=== PATIENT | male | born 1995 | race African-American/Black ===

== ENCOUNTER 2022-10-27 19:53 | Emergency (ER) | payer OTHER ==
[2022-10-27 20:09] VITALS: BP 121/81; PULSE 88; RESP 16; TEMP 98.4; BMI 22.1
[2022-10-27] MEDS ORDERED: AMOX TR/POT CLAV 875MG/125MG TABLETS (FP) PO ONE (20:17)
[2022-10-27] MEDS ORDERED: AMOX TR/POT CLAV 875MG/125MG TABLETS (FP) ONE (20:18)
[2022-10-27] MEDS ORDERED: DIPHTH,PERTUSS(ACELL),TET 0.5 ML DISP.SYRIN IM ONE ×2 (20:18→20:19)
== END 2022-10-27 20:29 | disposition home or self-care (01) ==
LOC: FER 19:53
PROC: 3E0234Z Introduction of Serum, Toxoid and Vaccine into Muscle, Percutaneous Approach (ICD-10-PCS; principal; 2022-10-27)
DX: S61.452A Open bite of left hand, initial encounter (principal); S81.851A Open bite, right lower leg, initial encounter; Y04.1XXA Assault by human bite, initial encounter; Y92.009 Unspecified place in unspecified non-institutional (private) residence as the place of occurrence of the external cause
CPT/HCPCS: 90715; 99283-25

== ENCOUNTER 2023-01-17 15:46 | Emergency (ER) | payer OTHER ==
[2023-01-17 15:55] VITALS: BP 121/67; PULSE 73; RESP 16; TEMP 98; BMI 22.8
[2023-01-17] MEDS ORDERED: AMOX TR/POT CLAV 875MG/125MG TABLETS (FP) PO ONE (16:02)
[2023-01-17] MEDS ORDERED: AMOX TR/POT CLAV 875MG/125MG TABLETS (FP) ONE (16:04)
== END 2023-01-17 16:19 | disposition home or self-care (01) ==
LOC: FER 15:46
DX: S01.511A Laceration without foreign body of lip, initial encounter (principal); L08.9 Local infection of the skin and subcutaneous tissue, unspecified; K13.0 Diseases of lips; V89.2XXA Person injured in unspecified motor-vehicle accident, traffic, initial encounter; Y93.I9 Activity, other involving external motion; Y92.9 Unspecified place or not applicable
CPT/HCPCS: 99283-25

== ENCOUNTER 2024-02-27 14:36 | Emergency (ER) | payer OTHER ==
[2024-02-27 14:42] VITALS: BP 156/87; PULSE 78; RESP 18; TEMP 98.8; BMI 22.1
[2024-02-27] MEDS ORDERED: DIPHTH,PERTUSS(ACELL),TET 0.5 ML DISP.SYRIN IM ONE (14:52)
[2024-02-27] MEDS: DIPHTH,PERTUSS(ACELL),TET 0.5 ML DISP.SYRIN IM ONE (14:58)
== END 2024-02-27 15:03 | disposition home or self-care (01) ==
LOC: FER 14:36
PROC: 3E0234Z Introduction of Serum, Toxoid and Vaccine into Muscle, Percutaneous Approach (ICD-10-PCS; principal; 2024-02-27)
DX: S61.210A Laceration without foreign body of right index finger without damage to nail, initial encounter (principal); W26.0XXA Contact with knife, initial encounter
CPT/HCPCS: 90715; 99284-25